=== PATIENT | female | born 2000 | race Caucasian/White ===

== ENCOUNTER 2019-04-05 19:13 | Inpatient (IN) | payer OTHER ==
[~2019-04-05] VITALS: Ht 170.2 cm; Wt 78.4 kg
[2019-04-05] MEDS: NS 1,000 ML IV SCH (01:55)
[2019-04-05] MEDS ORDERED: NS 1,000 ML IV ONE (19:30)
[2019-04-05 19:45] LABS: BASO % 0.2 % (0.0-1.0); EOS % 0.1 % (0.0-3.0); HEMATOCRIT 41.9 % (36.0-47.0); HEMOGLOBIN 14.5 g/dl (12.0-15.5); LYMPH # 1.4 10^3/uL (1.5-6.5); LYMPH % 16.8 % (24.0-44.0); MEAN CORPUSCULAR HEMOGLOBIN 30.7 pg (27.0-33.0); MEAN CORPUSCULAR HGB CONC 34.6 g/dl (32.0-36.5); MEAN CORPUSCULAR VOLUME 88.6 fl (80.0-96.0); MONO # 0.4 10^3/uL (0.0-0.8); MONO % 4.7 % (0.0-5.0); NEUTROPHILS # 6.5 10^3/uL (1.8-7.7); PLATELET COUNT, AUTOMATED 232 10^3/uL (150-450); RED BLOOD COUNT 4.73 10^6/uL (4.00-5.40); WHITE BLOOD COUNT 8.3 10^3/uL (4.0-10.0)
[2019-04-05 20:04] LABS: HCG, SERUM QUALITATIVE NEGATIVE (NEGATIVE)
[2019-04-05 20:06] LABS: ACETAMINOPHEN LEVEL 179.8 UG/ML (10.0-30.0); ALBUMIN 4.2 GM/DL (3.2-5.2); ALT/SGPT 22 U/L (12-78); BILIRUBIN,DIRECT 0.2 MG/DL (0.0-0.2); BILIRUBIN,TOTAL 0.5 MG/DL (0.2-1.0); BLOOD UREA NITROGEN 14 MG/DL (7-18); CALCIUM LEVEL 9.1 MG/DL (8.5-10.1); CARBON DIOXIDE LEVEL 25 MEQ/L (21-32); CHLORIDE LEVEL 107 MEQ/L (98-107); CPK CREATINE PHOSPHOKINASE 73 U/L (26-192); CREATININE FOR GFR 0.87 MG/DL (0.55-1.30); ETHYL ALCOHOL (ETHANOL) 0.004 % (0.000-0.010); GLUCOSE, FASTING 111 MG/DL (70-100); POTASSIUM SERUM 3.7 MEQ/L (3.5-5.1); SALICYLATE LEVEL < 1.7 MG/DL (5.0-30.0); SODIUM LEVEL 140 MEQ/L (136-145); TOTAL PROTEIN 7.1 GM/DL (6.4-8.2)
[2019-04-05] MEDS ORDERED: ACETYLCYSTEINE 10,500 MG in D5W 250 ML IV ONE (21:00)
--- NOTE | 2019-04-05 21:36 | ECGEPIP ---
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
[2019-04-05 21:42] LABS: AMPHETAMINES LEVEL URINE NEGATIVE (NEGATIVE); BARBITURATES URINE NEGATIVE (NEGATIVE); BENZODIAZEPINES URINE NEGATIVE (NEGATIVE); CANNABINOIDS URINE NEGATIVE (NEGATIVE); COCAINE METABOLITE URINE NEGATIVE (NEGATIVE); METHADONE URINE NEGATIVE (NEGATIVE); OPIATES URINE NEGATIVE (NEGATIVE); PHENCYCLIDINE URINE NEGATIVE (NEGATIVE)
[2019-04-05] MEDS ORDERED: IBUPPOW25 PO (21:43)
[2019-04-05] MEDS ORDERED: ACETYLCYSTEINE 3,500 MG in D5W 500 ML IV ONE (22:00)
[2019-04-05] MEDS ORDERED: ONDANSETRON 4MG/2ML VIAL (J2405) IV ONE (22:30)
[2019-04-05] MEDS ORDERED: ONDANSETRON 4MG/2ML VIAL (J2405) IV PRN (23:45)
--- NOTE | 2019-04-05 23:56 | HPEPDOC ---
General Date of Admission 04/05/19 Date of Service: Apr 05, 2019 Chief Complaint The patient is a 18-year-old female admitted with a reason for visit of Overdose. History of Present Illness This is a 18 yo female with no pmhx who presented to the ed for tylenol overdose around 2pm, today. Patient said she has been feeling depressed, but she didn't want to share what was bothering her. She took 30 tabs of 500mg tylenol and used a knife to scrap her skin. Patient said she tried to cut herself in the past. She was never diagnosed with psychiatric illness and said during this time of feeling depressed she never seek medical/psychiatric help. She agrees to see a psychiatrist. She denied any recent illness, fever, chills, chest pain, sob, abd pain, but has nausea and vomited twice. ROS - all 14 point review of system is negative except for whats listed in HPI surgical hx - none Social - denied smoking , drinking or drug use, currently in the and stationed at a base close by. family - mother - bipolar and schizophrenia allergies - penicillin- hives Physical exam Gen: NAD, healthy appearing , HEENT: normocephalic, atraumatic, no discharge from ears or nose, no oropharyngeal erythema or exudate, neck is supple, no lymphadenopathy, trachea midline CVS: RRR, normal S1n S2, no murmur, rubs, or gallops, no edema, no jvd Resp: LCTAB, no rhonchi, wheezes or crackles Abd : soft nontender, normal bowel sounds, no rebound tenderness or guarding MSK: no swelling, full range of motion, strength 5/5 Neuro: AOAx3, no confusion, no focal deficit Psych: normal mood and affect, Assessment and Plan tylenol overdose - suicidal attempt psych consult c/w NAC - 150mg/kg for loading dose to run over 60mins, then 50mg /kg over 4 hours, followed by 100mg/kg over 16hours f/ui test follow repeat cmp for tyelnol peak level in case med was long acting f/u INR//PT 1:1 suicidal watch monitor in PCU full code, from home, no svc Home Medications Scheduled [Ibuprofen] , 1 DOSE PO ASDIRECTED, (Reported) PATIENT STATES SHE TAKES PRESCRIPTION IBUPROFEN. UNABLE TO VERIFY DOSE. WILL CALL [facility] IN THE MORNING. Allergies Coded Allergies: Penicillins (Verified Allergy, Unknown, HIVES, 04/05/19) A-FIB/CHADSVASC A-FIB History Current/History of A-Fib/PAF?: No Current PO Anticoag Therapy: No Age/Risk Factor Scoring CHADSVASC: CHADSVASC Response (Comments) Value Age Risk Factor Age < 65 years old 0 Gender Risk Factor Female 1 Hx of CHF No 0 Hx of HTN No 0 Hx of Stroke/TIA/or VTE No 0 Hx of Diabetes No 0 Hx of Vascular Disease No 0 Total 1 Treatment Treatment ordered: NONE Reason Anticoagulant not given: Not indicated/[id number] Vital Signs Vital Signs Date Time Temp Pulse Resp B/P (MAP) Pulse Ox O2 Delivery O2 Flow Rate FiO2 04/05/19 22:30 73 122/70 (87) 97 04/05/19 22:15 18 Room Air 04/05/19 20:35 97.4 Laboratory Data Labs 24H Laboratory Tests 2 04/05/19 19:25: Immature Granulocyte % (Auto) 0.2, White Blood Count 8.3, Red Blood Count 4.73, Hemoglobin 14.5, Hematocrit 41.9, Mean Corpuscular Volume 88.6, Mean Corpuscular Hemoglobin 30.7, Mean Corpuscular Hemoglobin Concent 34.6, Red Cell Distribution Width 12.2, Platelet Count 232, Neutrophils (%) (Auto) 78.0H, Lymphocytes (%) (Auto) 16.8L, Monocytes (%) (Auto) 4.7, Eosinophils (%) (Auto) 0.1, Basophils (%) (Auto) 0.2, Neutrophils # (Auto) 6.5, Lymphocytes # (Auto) 1.4L, Monocytes # (Auto) 0.4, Eosinophils # (Auto) 0.0, Basophils # (Auto) 0.0, Nucleated Red Blood Cells % (auto) 0.0, Anion Gap 8, Calcium Level 9.1, Aspartate Amino Transf (AST/SGOT) 16, Alanine Aminotransferase (ALT/SGPT) 22, Alkaline Phosphatase 121H, Total Bilirubin 0.5, Direct Bilirubin 0.2, Total Creatine Kinase 73, Total Protein 7.1, Albumin 4.2, Albumin/Globulin Ratio 1.45, Thyroid Stimulating Hormone (TSH) 1.070, Human Chorionic Gonadotropin, Qual NEGATIVE, Salicylates Level < 1.7L, Urine Amphetamines Screen NEGATIVE, Urine Benzodiazepines Screen NEGATIVE, Urine Opiates Screen NEGATIVE, Urine Methadone Screen NEGATIVE, Acetaminophen Level 179.8H, Urine Barbiturates Screen NEGATIVE, Urine Phencyclidine Screen NEGATIVE, Urine Cocaine Metabolite Screen NEGATIVE, Urine Cannabinoids Screen NEGATIVE, Ethyl Alcohol Level 0.004 04/05/19 19:44: Bedside Glucose (Misc Panel) 93 CBC/BMP Laboratory Tests 04/05/19 19:25 Red Blood Count 4.73, Mean Corpuscular Volume 88.6, Mean Corpuscular Hemoglobin 30.7, Mean Corpuscular Hemoglobin Concent 34.6, Red Cell Distribution Width 12.2, Neutrophils (%) (Auto) 78.0 H, Lymphocytes (%) (Auto) 16.8 L, Monocytes (%) (Auto) 4.7, Eosinophils (%) (Auto) 0.1, Basophils (%) (Auto) 0.2, Neutrophils # (Auto) 6.5, Lymphocytes # (Auto) 1.4 L, Monocytes # (Auto) 0.4, Eosinophils # (Auto) 0.0, Basophils # (Auto) 0.0 Plan / VTE VTE Prophylaxis Ordered?: Yes LEXI LING MD Apr 05, 2019 23:56
[2019-04-06 00:07] LABS: ACETAMINOPHEN LEVEL 77.3 UG/ML (10.0-30.0); SALICYLATE LEVEL < 1.7 MG/DL (5.0-30.0)
[2019-04-06 01:10] LABS: ALBUMIN 3.5 GM/DL (3.2-5.2); ALT/SGPT 24 U/L (12-78); BILIRUBIN,TOTAL 0.4 MG/DL (0.2-1.0); BLOOD UREA NITROGEN 11 MG/DL (7-18); CARBON DIOXIDE LEVEL 24 MEQ/L (21-32); CHLORIDE LEVEL 109 MEQ/L (98-107); CREATININE FOR GFR 0.84 MG/DL (0.55-1.30); GLUCOSE, FASTING 156 MG/DL (70-100); POTASSIUM SERUM 3.8 MEQ/L (3.5-5.1); SODIUM LEVEL 144 MEQ/L (136-145); TOTAL PROTEIN 6.2 GM/DL (6.4-8.2)
[2019-04-06 01:12] LABS: INR 1.15; PROTHROMBIN TIME 14.4 SECONDS (11.8-14.0)
[2019-04-06] MEDS ORDERED: ACETYLCYSTEINE 7,000 MG in D5W 1,000 ML IV ONE (02:00)
[2019-04-06] MEDS: HEPARIN SOD (PORCINE) 5000 UNITS/ML VIAL SQ SCH ×3 (06:50→21:38)
[2019-04-06 07:13] LABS: HEMATOCRIT 37.3 % (36.0-47.0); HEMOGLOBIN 12.9 g/dl (12.0-15.5); MEAN CORPUSCULAR HEMOGLOBIN 30.9 pg (27.0-33.0); MEAN CORPUSCULAR HGB CONC 34.6 g/dl (32.0-36.5); MEAN CORPUSCULAR VOLUME 89.4 fl (80.0-96.0); PLATELET COUNT, AUTOMATED 209 10^3/uL (150-450); RED BLOOD COUNT 4.17 10^6/uL (4.00-5.40); WHITE BLOOD COUNT 10.6 10^3/uL (4.0-10.0)
[2019-04-06 07:35] LABS: BLOOD UREA NITROGEN 9 MG/DL (7-18); CARBON DIOXIDE LEVEL 23 MEQ/L (21-32); CHLORIDE LEVEL 111 MEQ/L (98-107); CREATININE FOR GFR 0.68 MG/DL (0.55-1.30); GLUCOSE, FASTING 90 MG/DL (70-100); MAGNESIUM LEVEL 1.8 MG/DL (1.4-2.0); POTASSIUM SERUM 3.5 MEQ/L (3.5-5.1); SODIUM LEVEL 142 MEQ/L (136-145)
[2019-04-06] MEDS: NS 1,000 ML IV SCH ×2 (07:40→16:40)
[2019-04-06 08:50] LABS: INR 1.27; PROTHROMBIN TIME 15.6 SECONDS (11.8-14.0)
[2019-04-06 08:51] LABS: PARTIAL THROMBOPLASTIN TIME 31.8 SECONDS (25.0-38.4)
[2019-04-06 09:10] LABS: ACETAMINOPHEN LEVEL 10.2 UG/ML (10.0-30.0); ALT/SGPT 15 U/L (12-78); BILIRUBIN,TOTAL 0.5 MG/DL (0.2-1.0); BLOOD UREA NITROGEN 7 MG/DL (7-18); CALCIUM LEVEL 7.8 MG/DL (8.5-10.1); CARBON DIOXIDE LEVEL 23 MEQ/L (21-32); CHLORIDE LEVEL 109 MEQ/L (98-107); GLUCOSE, FASTING 121 MG/DL (70-100); POTASSIUM SERUM 3.4 MEQ/L (3.5-5.1); SODIUM LEVEL 140 MEQ/L (136-145); TOTAL PROTEIN 5.6 GM/DL (6.4-8.2)
[2019-04-06] MEDS ORDERED: IBUP1TAB7 PO (09:15)
--- NOTE | 2019-04-06 15:51 | IPNPDOC ---
Date Seen The patient was seen on 04/06/19. Progress Note SUBJECTIVE: No c/o nausea, vomiting, abdominal pain,cramping, diarrhea, fever or chills. no confusion.Asking when she can be released. No other issues per sitter. Pt ate her breakfast without complaints. OBJECTIVE: PHYSICAL EXAMINATION: VITALS: PLS SEE BELOW Gen: NAD, healthy appearing , HEENT: normocephalic, atraumatic, no discharge from ears or nose, no oropharyngeal erythema or exudate, neck is supple, no lymphadenopathy, trachea midline CVS: RRR, normal S1n S2, no murmur, rubs, or gallops, no edema, no jvd Resp: LCTAB, no rhonchi, wheezes or crackles Abd : soft nontender, normal bowel sounds, no rebound tenderness or guarding MSK: no swelling, full range of motion, strength 5/5 Neuro: AOAx3, no confusion, no focal deficit Psych: normal mood and affect, LABORATORY DATA, IMAGING STUDIES: PLS SEE BELOW ASSESSMENT AND PLAN: This is a 18 yo female with no pmhx who presented to the ed for tylenol overdose around 2pm, today. Patient said she has been feeling depressed, but she didn't want to share what was bothering her. She took 30 tabs of 500mg tylenol and used a knife to scrap her skin. Patient said she tried to cut herself in the past. She was never diagnosed with psychiatric illness and said during this time of feeling depressed she never seek medical/psychiatric help. She agrees to see a psychiatrist. She denied any recent illness, fever, chills, chest pain, sob, abd pain, but has nausea and vomited twice. ACUTE MEDICAL ISSUES: ACETAMINOPHEN INTENTIONAL OVERDOSE. psych consult once medically stable c/w NAC - 150mg/kg for loading dose to run over 60mins, then 50mg /kg over 4 hours, followed by 100mg/kg over 16hours negative test 1:1 suicidal watch monitor in PCU monitor inr, cmp, and acetoaminophen . following poison control recommendations SUICIDE ATTEMPT via ACETAMINOPHEN INTENTIONAL OVERDOSE. psych consult once medically stable c/w NAC - 150mg/kg for loading dose to run over 60mins, then 50mg /kg over 4 hours, followed by 100mg/kg over 16hours negative test 1:1 suicidal watch monitor in PCU monitor inr, cmp, and acetoaminophen . following poison control recommendations SEVERE DEPRESSION with suicide attempt via ACETAMINOPHEN INTENTIONAL OVERDOSE. psych consult once medically stable c/w NAC - 150mg/kg for loading dose to run over 60mins, then 50mg /kg over 4 hours, followed by 100mg/kg over 16hours negative test 1:1 suicidal watch monitor in PCU monitor inr, cmp, and acetoaminophen . following poison control recommendations disposition: psych consult once medically cleared. VS, I&O, 24H, Fishbone Vital Signs/I&O Vital Signs Date Time Temp Pulse Resp B/P (MAP) Pulse Ox O2 Delivery O2 Flow Rate FiO2 04/06/19 15:42 98.0 78 18 119/75 (90) 100 Room Air I&O- Last 24 Hours up to 6 AM 04/06/19 06:00 Intake Total 250 ml Balance 250 ml Laboratory Data 24H LABS Laboratory Tests 2 04/05/19 19:25: Immature Granulocyte % (Auto) 0.2, White Blood Count 8.3, Red Blood Count 4.73, Hemoglobin 14.5, Hematocrit 41.9, Mean Corpuscular Volume 88.6, Mean Corpuscular Hemoglobin 30.7, Mean Corpuscular Hemoglobin Concent 34.6, Red Cell Distribution Width 12.2, Platelet Count 232, Neutrophils (%) (Auto) 78.0H, Lymphocytes (%) (Auto) 16.8L, Monocytes (%) (Auto) 4.7, Eosinophils (%) (Auto) 0.1, Basophils (%) (Auto) 0.2, Neutrophils # (Auto) 6.5, Lymphocytes # (Auto) 1.4L, Monocytes # (Auto) 0.4, Eosinophils # (Auto) 0.0, Basophils # (Auto) 0.0, Nucleated Red Blood Cells % (auto) 0.0, Anion Gap 8, Calcium Level 9.1, Aspartate Amino Transf (AST/SGOT) 16, Alanine Aminotransferase (ALT/SGPT) 22, Alkaline Phosphatase 121H, Total Bilirubin 0.5, Direct Bilirubin 0.2, Total Creatine Kinase 73, Total Protein 7.1, Albumin 4.2, Albumin/Globulin Ratio 1.45, Thyroid Stimulating Hormone (TSH) 1.070, Human Chorionic Gonadotropin, Qual NEGATIVE, Salicylates Level < 1.7L, Urine Amphetamines Screen NEGATIVE, Urine Benzodiazepines Screen NEGATIVE, Urine Opiates Screen NEGATIVE, Urine Methadone Screen NEGATIVE, Acetaminophen Level 179.8H, Urine Barbiturates Screen NEGATIVE, Urine Phencyclidine Screen NEGATIVE, Urine Cocaine Metabolite Screen NEGATIVE, Urine Cannabinoids Screen NEGATIVE, Ethyl Alcohol Level 0.004 04/05/19 19:44: Bedside Glucose (Misc Panel) 93 04/05/19 23:22: Anion Gap 11, Calcium Level 8.0L, Aspartate Amino Transf (AST/SGOT) 13, Alanine Aminotransferase (ALT/SGPT) 24, Alkaline Phosphatase 104, Total Bilirubin 0.4, Total Protein 6.2L, Albumin 3.5, Albumin/Globulin Ratio 1.30, Salicylates Level < 1.7L, Acetaminophen Level 77.3H, Blood Urea Nitrogen 11, Creatinine 0.84, Sodium Level 144, Potassium Level 3.8, Chloride Level 109H, Carbon Dioxide Level 24 04/05/19 23:59: Prothrombin Time 14.4H, Prothromb Time International Ratio 1.15 04/06/19 06:53: Nucleated Red Blood Cells % (auto) 0.0, Anion Gap 8, Lactic Acid Level 1.1, Blood Urea Nitrogen 9, Creatinine 0.68, Sodium Level 142, Potassium Level 3.5, Chloride Level 111H, Carbon Dioxide Level 23, Calcium Level 8.0L, Magnesium Level 1.8 04/06/19 08:26: Anion Gap 8, Blood Urea Nitrogen 7, Creatinine 0.70, Sodium Level 140, Potassium Level 3.4L, Chloride Level 109H, Carbon Dioxide Level 23, Calcium Level 7.8L, Prothrombin Time 15.6H, Prothromb Time International Ratio 1.27, Activated Partial Thromboplast Time 31.8, Aspartate Amino Transf (AST/SGOT) 12, Alanine Aminotransferase (ALT/SGPT) 15, Alkaline Phosphatase 83, Total Bilirubin 0.5, Total Protein 5.6L, Albumin 3.0L, Albumin/Globulin Ratio 1.15, Acetaminophen Level 10.2 CBC/BMP Laboratory Tests 04/05/19 19:25 Red Blood Count 4.73, Mean Corpuscular Volume 88.6, Mean Corpuscular Hemoglobin 30.7, Mean Corpuscular Hemoglobin Concent 34.6, Red Cell Distribution Width 12.2, Neutrophils (%) (Auto) 78.0 H, Lymphocytes (%) (Auto) 16.8 L, Monocytes (%) (Auto) 4.7, Eosinophils (%) (Auto) 0.1, Basophils (%) (Auto) 0.2, Neutrophils # (Auto) 6.5, Lymphocytes # (Auto) 1.4 L, Monocytes # (Auto) 0.4, Eosinophils # (Auto) 0.0, Basophils # (Auto) 0.0 04/05/19 23:22 Calcium Level 8.0 L, Aspartate Amino Transf (AST/SGOT) 13, Alanine Aminotransferase (ALT/SGPT) 24, Alkaline Phosphatase 104, Total Bilirubin 0.4, Total Protein 6.2 L, Albumin 3.5 04/06/19 06:53 Red Blood Count 4.17, Mean Corpuscular Volume 89.4, Mean Corpuscular Hemoglobin 30.9, Mean Corpuscular Hemoglobin Concent 34.6, Red Cell Distribution Width 12.2, Calcium Level 8.0 L 04/06/19 08:26 Calcium Level 7.8 L, Aspartate Amino Transf (AST/SGOT) 12, Alanine Am inotransferase (ALT/SGPT) 15, Alkaline Phosphatase 83, Total Bilirubin 0.5, Total Protein 5.6 L, Albumin 3.0 L ORLANDO MCCAULEY MD Apr 06, 2019 15:51
[2019-04-06 16:07] LABS: INR 1.27; PROTHROMBIN TIME 15.6 SECONDS (11.8-14.0)
[2019-04-06 16:28] LABS: ACETAMINOPHEN LEVEL 5.4 UG/ML (10.0-30.0); ALBUMIN 3.2 GM/DL (3.2-5.2); ALT/SGPT 19 U/L (12-78); BILIRUBIN,TOTAL 0.2 MG/DL (0.2-1.0); BLOOD UREA NITROGEN 9 MG/DL (7-18); CALCIUM LEVEL 8.8 MG/DL (8.5-10.1); CARBON DIOXIDE LEVEL 24 MEQ/L (21-32); CHLORIDE LEVEL 112 MEQ/L (98-107); CREATININE FOR GFR 0.77 MG/DL (0.55-1.30); GLUCOSE, FASTING 86 MG/DL (70-100); POTASSIUM SERUM 3.8 MEQ/L (3.5-5.1); SODIUM LEVEL 144 MEQ/L (136-145); TOTAL PROTEIN 5.8 GM/DL (6.4-8.2)
[2019-04-06 17:00] VITALS: BP 152/78
[2019-04-06 20:00] VITALS: BP 126/57
[2019-04-07] VITALS (7 sets, daily range): BP systolic 104–145; BP diastolic 51–88
[2019-04-07] MEDS: NS 1,000 ML IV SCH ×3 (01:05→20:27)
[2019-04-07] MEDS: HEPARIN SOD (PORCINE) 5000 UNITS/ML VIAL SQ SCH ×3 (06:01→21:32)
[2019-04-07 11:22] LABS: HEMATOCRIT 40.8 % (36.0-47.0); HEMOGLOBIN 14.1 g/dl (12.0-15.5); MEAN CORPUSCULAR HEMOGLOBIN 30.5 pg (27.0-33.0); MEAN CORPUSCULAR HGB CONC 34.6 g/dl (32.0-36.5); MEAN CORPUSCULAR VOLUME 88.3 fl (80.0-96.0); PLATELET COUNT, AUTOMATED 215 10^3/uL (150-450); RED BLOOD COUNT 4.62 10^6/uL (4.00-5.40); WHITE BLOOD COUNT 7.2 10^3/uL (4.0-10.0)
[2019-04-07 12:13] LABS: ALBUMIN 3.6 GM/DL (3.2-5.2); ALT/SGPT 23 U/L (12-78); BILIRUBIN,TOTAL 0.4 MG/DL (0.2-1.0); BLOOD UREA NITROGEN 6 MG/DL (7-18); CALCIUM LEVEL 9.2 MG/DL (8.5-10.1); CARBON DIOXIDE LEVEL 30 MEQ/L (21-32); CHLORIDE LEVEL 108 MEQ/L (98-107); GLUCOSE, FASTING 85 MG/DL (70-100); POTASSIUM SERUM 4.2 MEQ/L (3.5-5.1); SODIUM LEVEL 140 MEQ/L (136-145); TOTAL PROTEIN 6.9 GM/DL (6.4-8.2)
--- NOTE | 2019-04-07 16:23 | IPNPDOC ---
Text Note Date of Service The patient was seen on 04/07/19. NOTE SUBJECTIVE: No acute overnight events. Patient states she feels well and has no complaints. No fevers, chills, cough, wheezing, chest pain, abd pain, SOB, cough, n/v/diarrhea. OBJECTIVE: GEN: NAD, appears healthy, stated age HEENT: EOMI, MMM, neck supple Cardio: S1/S2 present, RRR, no m/r/g. Pulses palpable in all extremities. No focal edema. Lungs: CTA b/l, good air entry, no wheezing Abd: soft, non-tender, non-distended, bowel sounds present, no scars, no guarding or tenderness MSK: strength 5/5, no focal weakness, no swelling. Lymph: no lymph nodes appreciated. Neuro: A&Ox3, no focal neuro deficits. Psych: normal mood, depressed affect LABORATORY DATA, IMAGING STUDIES: PLS SEE BELOW ASSESSMENT AND PLAN: This is a 18 yo female with no pmhx who presented to the ed for tylenol overdose. Patient said she has been feeling depressed, but she didn't want to share what was bothering her. She took 30 tabs of 500mg tylenol and used a knife to scrap her skin. Patient said she tried to cut herself in the past. She was never diagnosed with psychiatric illness and said during this time of feeling depressed she never seek medical/psychiatric help. She agrees to see a [facility] chiatrist. ACUTE MEDICAL ISSUES: Intentional Tylenol overdose -s/p NAC - 150mg/kg for loading dose to run over 60mins, then 50mg /kg over 4 hours, followed by 100mg/kg over 16hours. -IVF hydration -LFTs remain normal, will continue to monitor. INR elevated to 1.27, continue to monitor. -monitor CMP, INR. Suicide attempt likely underlying depression -Psychiatry consult for likely inpatient admission -1:1 suicidal watch dvt ppx: with heparin disposition: likely psych admission when cleared. Vital Signs Date Time Temp Pulse Resp B/P (MAP) Pulse Ox O2 Delivery O2 Flow Rate FiO2 04/07/19 12:30 97.9 48 20 123/83 (96) 100 04/07/19 08:30 98.8 75 19 133/62 (85) 100 04/07/19 04:00 97.4 65 18 107/57 (74) 96 04/07/19 00:00 96.8 70 18 104/51 (68) 98 04/06/19 20:00 98.5 77 18 126/57 (80) 96 04/06/19 17:00 97.6 74 17 152/78 (102) 98 Intake & Output 04/07/19 06:00 Intake Total 1240 ml Output Total 400 ml Balance 840 ml Laboratory Tests 04/07/19 11:00: White Blood Count 7.2, Red Blood Count 4.62, Hemoglobin 14.1, Hematocrit 40.8, Mean Corpuscular Volume 88.3, Mean Corpuscular Hemoglobin 30.5, Mean Corpuscular Hemoglobin Concent 34.6, Red Cell Distribution Width 12.4, Platelet Count 215, Nucleated Red Blood Cells % (auto) 0.0, Blood Urea Nitrogen 6L, Creatinine 0.70, Sodium Level 140, Potassium Level 4.2, Chloride Level 108H, Carbon Dioxide Level 30, Calcium Level 9.2, Aspartate Amino Transf (AST/SGOT) 17, Alanine Aminotransferase (ALT/SGPT) 23, Alkaline Phosphatase 110, Total Bilirubin 0.4#, Total Protein 6.9, Albumin 3.6, Anion Gap 2L, Fasting Glucose 85, Albumin/Globu farzana Ratio 1.09 Current Medications Medications (Trade) Dose Ordered Sig/Lalo Route PRN Reason Start Time Stop Time Status Last Admin Dose Admin Heparin Sodium (Porcine) (Heparin) 5,000 units Q8H SQ 04/06/19 06:00 04/07/19 14:00 5,000 UNITS Sodium Chloride 1,000 ml @ 125 mls/hr Q8H IV 04/05/19 23:45 04/07/19 07:45 125 MLS/HR VS,Fishbone, I+O VS, Fishbone, I+O Laboratory Tests 04/07/19 11:00 Red Blood Count 4.62, Mean Corpuscular Volume 88.3, Mean Corpuscular Hemoglobin 30.5, Mean Corpuscular Hemoglobin Concent 34.6, Red Cell Distribution Width 12.4, Calcium Level 9.2, Aspartate Amino Transf (AST/SGOT) 17, Alanine Aminotransferase (ALT/SGPT) 23, Alkaline Phosphatase 110, Total Bilirubin 0.4 #, Total Protein 6.9, Albumin 3.6 Vital Signs Date Time Temp Pulse Resp B/P (MAP) Pulse Ox O2 Delivery O2 Flow Rate FiO2 04/07/19 12:30 97.9 48 20 123/83 (96) 100 04/06/19 15:42 Room Air I&O- Last 24 Hours up to 6 AM 04/07/19 06:00 Intake Total 1240 ml Output Total 400 ml Balance 840 ml RICARDO URIARTE MD Apr 07, 2019 16:23
[2019-04-07] MEDS ORDERED: IBUPROFEN 400 MG TAB PO ONE (17:00)
--- NOTE | 2019-04-07 22:30 | MHCR ---
DATE OF CONSULTATION: 04/07/2019 CHIEF COMPLAINT: She feels stressed. SUBJECTIVE: She is 18 years old. She is single. 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 Says had difficulties off and on with sleep. Has a hard time getting to sleep, particularly when stressed and depressed. Has felt increasingly lonely, as is away from home. Family is in [place]. She is the oldest of seven siblings. Says failed a PT test in the and had been given a few months for preparation for a repeat test, says is training for it but increasingly felt that she will not be able to make it. Meanwhile, felt further depressed. Says those down emotions would come in "waves," last for a day or so, sometimes longer and that began increasing gradually. [place] depressed for a fair amount of time lately, the last few weeks with further difficulties with sleep. [place] more tired. Had a harder time with concentration. Says generally has liked hanging out with her friends, though at times has noticed a diminished desire to do so or engage in activities. Continued doing her work. Says would tend to get upset with comments she would hear either about her or other friends, which were not complimentary. Says on one occasion pointed it out to her seniors, but felt down for several days. Says tends to "joke" and had indicated to a friend lately that she had thoughts that were "not good," says they thought that it alluded to suicide and more lately, the last few weeks, began worrying about the PT test coming up, which is due to take place within the last few days. Says she was not ready for it and also felt that she would not pass. That would also mean that she would be chaptered out. Says did not want to return to [place] and that though her family would be supportive and understanding, she felt that she would be letting them down and a sense of failure. She also felt increasingly despondent over this, texted a friend that she had thoughts of taking her life or alluded to it. By then says had started taking Tylenol. She bought the Tylenol about a week prior to this. Says because of pain in the left shoulder while running. Says had been given a prescription for that. Says took a few Tylenol, felt further down, and took some more. Was washing them with water. Says went to sleep, woke up, continued taking them, and ended up taking about 30 or so, meanwhile at some point threw up while still at home. Says the MPs had been called by her friend. She remembers them coming, and the journey here. Threw up at some point in the hospital as well. She also scratched her left arm, somewhat superficially. Had cut herself. Says does not think that she was thinking of killing herself, but is not sure. She says wanted to "go away," given the difficulties she experienced and emotions she was feeling. Acknowledges that there was a point where she may have thought of killing herself, but says is glad she did not . Says has friends, a few, whom she can confide in, whom have been supportive and local. She was admitted to the medical service for medical stabilization given the overdose of Tylenol and is in the process of being cleared. She has received intravenous fluids, as well as acetyl cysteine. REVIEW OF SYSTEMS: There is no history of hypomania nor lita. No history of psychosis. No history of posttraumatic stress disorder (PTSD). Says feels anxious a fair amount of the time, even when doing well. No history of obsessions or compulsions. PAST PSYCHIATRIC HISTORY: None formally, but says felt depressed in high school, particularly the latter years, about a year or year and a half ago when she felt depressed for a substantial while, impacting her sleep and appetite. She says that there were times when she thought of taking her life but did not come close to it or had any plans at the time. Says did not seek help, but had thought of doing so. FAMILY PSYCHIATRIC HISTORY: Mother has attempted taking her life, has been hospitalized as well. The patient says that the mother has a history of bipolar disorder, apparently. SUBSTANCE ABUSE HISTORY: None significantly. MEDICAL HISTORY: None significantly. ALLERGIES: PENICILLIN. SOCIAL HISTORY: She was born and raised in [place]. Says did not have an easy childhood. Says that there have always been financial concerns, father was the only breadwinner. She says that he has worked hard, mostly nights, and she has hardly seen him during the day except times when she was home. She says that they get along. She gets along with her mother as well, but indicates mother has not worked, even when she could have, per the patient. The patient says that from a relatively early age, when she was 12, often had to look after her younger siblings to help her mother. The mother has generally stayed home. She says that there has always been financial concerns. Says that there is not much involvement by the grandparents, though she has been in touch with them except for one. No extended family as such. She graduated high school, says had thought of further studies but has had financial concerns and says was hoping being in the would help with that. MENTAL STATUS EXAMINATION: She is neat. She is generally cooperative though a bit guarded initially. She is sitting up in bed. No abnormal movements noted. There is no agitation. No psychomotor retardation. She is coherent. Answers questions briefly and logically. When speech is extended, no formal thought disorder. Affect is restricted in range. Denies any suicidal thoughts or intents at present. No homicidal ideas or intents. No evidence of any psychosis. No fluctuation of consciousness. She is alert and oriented to time, place and person. Can spell the word "house" forwards and backwards. Can recall two out of three objects after 10 minutes. Intellect is average. Judgment is questionable. Insight is fair at best. INVESTIGATIONS: Acetaminophen level of 179.8, which peaked at that (10 to 30). Metabolic profile essentially within normal limits except for chloride at 108, that was today. Complete blood count essentially within normal limits today. VITAL SIGNS: Blood pressure 129/75, pulse 70, temperature 97.5. ASSESSMENT: 1. Unspecified depressive disorder. 2. Rule out major depressive disorder. 3. Status post overdose. 4. Work related stress. 5. Fear of failing a test. 6. Limited supports. She has been depressed off and on for the past several weeks, clinically significantly, possibly months with diminished sleep, decreased motivation and energy, a sense of hopelessness, and this is further exacerbated by her expecting to fail her PT test and then being "chaptered out," possibly. Would not want to return to [place] and has had an acute sense of having failed the family if she did that. Has a family history of a mood disorder, bipolar disorder, mother has been diagnosed with that and this is an added risk factor. She may well be minimizing her difficulties and her moods, clinically significant, may well have impacted her motivation and therefore her ability to tackle the PT test and this, as mentioned above, further exacerbated by her sense of failure. She is being cleared medically after the overdose. The concerns above remain. RECOMMENDATIONS: She needs inpatient psychiatric hospitalization for further assessment and stabilization after she has been medically cleared. DCS application has been made. Thank you for the consultation. If you have any questions, please call. The assessment took 50 minutes.
[2019-04-08 04:00] VITALS: BP 136/82
[2019-04-08] MEDS: NS 1,000 ML IV SCH (04:30)
[2019-04-08 05:48] LABS: HEMATOCRIT 37.6 % (36.0-47.0); HEMOGLOBIN 12.8 g/dl (12.0-15.5); MEAN CORPUSCULAR HEMOGLOBIN 30.1 pg (27.0-33.0); MEAN CORPUSCULAR VOLUME 88.5 fl (80.0-96.0); PLATELET COUNT, AUTOMATED 179 10^3/uL (150-450); RED BLOOD COUNT 4.25 10^6/uL (4.00-5.40); WHITE BLOOD COUNT 6.1 10^3/uL (4.0-10.0)
[2019-04-08] MEDS: HEPARIN SOD (PORCINE) 5000 UNITS/ML VIAL SQ SCH ×2 (05:53→14:00)
[2019-04-08 06:00] LABS: PROTHROMBIN TIME 12.9 SECONDS (11.8-14.0)
[2019-04-08 06:06] LABS: ALBUMIN 3.2 GM/DL (3.2-5.2); ALT/SGPT 23 U/L (12-78); BILIRUBIN,TOTAL 0.3 MG/DL (0.2-1.0); BLOOD UREA NITROGEN 8 MG/DL (7-18); CALCIUM LEVEL 8.6 MG/DL (8.5-10.1); CARBON DIOXIDE LEVEL 29 MEQ/L (21-32); CHLORIDE LEVEL 110 MEQ/L (98-107); CREATININE FOR GFR 0.67 MG/DL (0.55-1.30); GLUCOSE, FASTING 87 MG/DL (70-100); POTASSIUM SERUM 3.9 MEQ/L (3.5-5.1); SODIUM LEVEL 142 MEQ/L (136-145)
[2019-04-08 08:00] VITALS: BP 149/95
[2019-04-08] MEDS ORDERED: SLF 3 ML SYR IV PRN (10:45)
[2019-04-08 12:00] VITALS: BP 138/83
[2019-04-08] MEDS ORDERED: SLF 3 ML SYR IV SCH (14:00)
[2019-04-08 16:00] VITALS: BP 137/85
== END 2019-04-08 16:20 | DRG 918 ==
LOC: M ED 19:13 → M ED INP 23:13 → M PCU 04-06 15:50
PROVIDERS: ADMIT Internal Medicine; ATTEND Internal Medicine
DX: T39.1X2A Poisoning by 4-Aminophenol derivatives, intentional self-harm, initial encounter (principal); Z81.8 Family history of other mental and behavioral disorders; Z88.0 Allergy status to penicillin; F32.9 Major depressive disorder, single episode, unspecified; Z56.6 Other physical and mental strain related to work

== ENCOUNTER 2019-04-08 11:54 | Inpatient (IN) | payer OTHER ==
[~2019-04-08] VITALS: Ht 170.2 cm; Wt 79.7 kg
[~2019-04-08 11:54] MED LIST: IBUP1TAB7 PO; IBUPPOW25 PO
[2019-04-08] MEDS ORDERED: MAALOX 30 ML SUSP *UDC PO PRN (16:00)
[2019-04-08] MEDS ORDERED: MOM 30ML SUSPENSION UDC PO PRN (16:00)
[2019-04-08 16:35] VITALS: BP 130/85
[2019-04-08 18:42] VITALS: BP 130/85
[2019-04-08] MEDS: traZODone 50 MG TAB PO PRN (21:30)
[2019-04-09 06:30] VITALS: BP 119/57
--- NOTE | 2019-04-09 10:16 | MHHPEPDOC ---
General Date Of Admission: Apr 08, 2019 Legal Status: 9.37 Chief Complaint "I was feeling depressed so I took a bunch of tylenol." History of Present Illness HISTORY OF THE PRESENT ILLNESS: Patient is a 18 -year-old , AD, female, who was transferred to [facility] from medical floor after seen by Dr. Hahn on consult and medically stable s/p OD on Tylenol. Per Dr. Hahn's consult note: "She is 18 years old. She is single. 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 Says had difficulties off and on with sleep. Has a hard time getting to sleep, particularly when stressed and depressed. Has felt increasingly lonely, as is away from home. Family is in [place]. She is the oldest of seven siblings. Says failed a PT test in the and had been given a few months for preparation for a repeat test, says is training for it but increasingly felt that she will not be able to make it. Meanwhile, felt further depressed. Says those down emotions would come in "waves," last for a day or so, sometimes longer and that began increasing gradually. [place] depressed for a fair amount of time lately, the last few weeks with further difficulties with sleep. [place] more tired. Had a harder time with concentration. Says generally has liked hanging out with her friends, though at times has noticed a diminished desire to do so or engage in activities. Continued doing her work. Says would tend to get upset with comments she would hear either about her or other friends, which were not complimentary. Says on one occasion pointed it out to her seniors, but felt down for several days. Says tends to "joke" and had indicated to a friend lately that she had thoughts that were "not good," says they thought that it alluded to suicide and more lately, the last few weeks, began worrying about the PT test coming up, which is due to take place within the last few days. Says she was not ready for it and also felt that she would not pass. That would also mean that she would be chaptered out. Says did not want to return to [place] and that though her family would be supportive and understanding, she felt that she would be letting them down and a sense of failure. She also felt increasingly despondent over this, texted a friend that she had thoughts of taking her life or alluded to it. By then says had started taking Tylenol. She bought the Tylenol about a week prior to this. Says because of pain in the left shoulder while running. Says had been given a prescription for that. Says took a few Tylenol, felt further down, and took some more. Was washing them with water. Says went to sleep, woke up, continued taking them, and ended up taking about 30 or so, meanwhile at some point threw up while still at home. Says the [employer] had been called by her friend. She remembers them coming, and the journey here. Threw up at some point in the hospital as well. She also scratched her left arm, somewhat superficially. Had cut herself. Says does not think that she was thinking of killing herself, but is not sure. She says wanted to "go away," given the difficulties she experienced and emotions she was feeling. Acknowledges that there was a point where she may have thought of killing herself, but says is glad she did not . Says has friends, a few, whom she can confide in, whom have been supportive and local. She was admitted to the medical service for medical stabilization given the overdose of Tylenol and is in the process of being cleared. She has received intravenous fluids, as well as acetyl cysteine." Psychiatric Review of Systems Depression (2 or more weeks): depressed mood, difficulty concentrating, suicidal thoughts [place] (4 or more days of): denies Psychosis: denies PTSD: denies Anxiety: situational anxiety, stressor related anxiety Past Psychiatric History Previous Psychiatric Diagnosis: denies but per Dr Hahn endorsed depression in high school Previous Psychiatric Admissions: denies Suicide Attempts: denies prior to recent Tylenol OD Psychiatric Follow-up: denies Psychiatric medications: denies Past Medical History Medical Problems denies Head Injury: No Seizures: No Hospitalizations: No Surgeries: No Family Medical/Psychiatric HX Medical Problems noncontributory Psychiatric Disorders: Yes (mother - bipolar d/o) Addiction: No Suicide Attemps/Completions: Yes (mother - SA, is still living) Addiction History denies Social History Childhood: Born and raised in [place] in a two parent home in which father was the only one that worked mostly at night causing finances to be limited. Continues to have a good relationship with her parents and is close with her mother. Mother never worked even what it was possible for her to work. Pt looked after her younger siblings, 2 younger brothers, starting around age 12 y/o to help her mother. No relation with extended family. Abuse/Trauma:denies Current Living Situation: [employer] Education: High school grad Employment: [employer], 6mos, works in supply Social Support: family Legal: denies Marital: single, never , no kids Mental Status Examination General Appearance: well groomed, appears stated age, hospital scubs/clothing Build: average Demeanor: average Eye Contact: average Activity: anxious Behavior: cooperative Speech: clear, spontaneous, reg/rate,rhythm,volume Mood: euthymic, anxious Mood "stressed" Affect: full, appropriate, congruent, anxious Thought Process: logical/linear, depressed, intact, other (fear of failure) Thought Content (Delusions): none reported, denies SI, HI, AVH Thought Content (Other): none reported, appropriate Thought Content (Aggressive): none reported Perception (Hallucinations): none reported Perception (Other): none reported Cognition (Impairment of): none reported Cognition(Intelligence Est.): average Oriented: Awake, Alert, Oriented times three Insight: fair Judgment: Fair Psychosis: Denies Diagnoses Adjustment d/o with anxiety and depression A-FIB/CHADSVASC A-FIB History Current/History of A-Fib/PAF?: No Current PO Anticoag Therapy: No Treatment Treatment ordered: NONE Reason Anticoagulant not given: Not indicated/[id number] Assessment Pt seen and states she's here b/c she took an OD of Tylenol after failing her PT test a few months ago which caused her to feel "stressed out" and had to retake PT test on Saturday but took OD instead out feeling "fear and shame" about possibly not passing again. States today she feels better today and for calm, less stressed, due to she believes taking a break from work and thinking about how she can change things for the better to make herself feel better regarding her time to take her PT test and pass it. States that she does not think she needs to start an antidepressant at this time and would per to try individual and group therapy (has never been in psych treatment before so good place to start with new pt) to work on coping mechanisms for anxiety and build confidence in herself. Denies SI/HI, hallucinations/delusions. Feels safe here. Initial Treatment Plan 1. Patient was admitted on a 9.37 status. 2. Complete history was obtained. 3. With patients permission, family will be contacted and database will be expanded. 4. Patients medication regimen will be reviewed and changed accordingly. 5. Patient will be provided with protected environment. 6. Patient will be treated with individual, group, and milieu therapies. 7. Patient will receive supportive psych-education. 8. Discharge planning will commence immediately. 9. Outpatient follow-up treatment will be strongly recommended. 10. The initial treatment plan will focus initially on: * Depression. * Risk for suicide. * Substance abuse. 11. monitory for safety. ESTIMATED LENGTH OF STAY: 5-7 DAYS. TIME SPENT COUNSELING AND COORDINATING INITIAL CARE: 60 minutes. Vital Signs Vital Signs Date Time Temp Pulse Resp B/P (MAP) Pulse Ox O2 Delivery O2 Flow Rate FiO2 04/09/19 06:30 97.6 67 12 119/57 (77) 04/08/19 18:42 100 Medications No Active Prescriptions or Reported Meds Allergies Coded Allergies: Penicillins (Verified Allergy, Unknown, HIVES, 04/05/19) NUHA WALTER DO Apr 09, 2019 9:44 am
--- NOTE | 2019-04-09 13:06 | HPEPDOC ---
[facility] Medical History & Physical Date of Admission Apr 09, 2019 Date of Service: Apr 09, 2019 History and Physical CHIEF COMPLAINT: SUICIDE ATTEMPT BY INTENTIONAL ACETAMINOPHEN OVERDOSE HISTORY OF PRESENT This is a 18 yo female was admitted for suicide attempt by intentional acetaminophen overdose, s/p iv acetadote, medically cleared and admitted to [facility] depressed mood, difficulty concentrating, suicidal thoughts, situational anxiety, stressor related anxiety . She denies any nausea, vomiting,abdominal p ain. Liver function tests and coagulation studies are stable. Hospitalist was called for medical history for [facility] admission. She denies loss of appetite, weight changes, chills, fever, sore throat, rhinorrhea, ear discharge/pain/tinnitus, nasal congestion, dysphagia, odynophagia, dysuria, urgency, frequency, flank pain, sob, chest pain, sob, palpitations, lightheadedness, near syncope, upper or lower extremity weakness, paresthesias,gait abnormality.ING ILLNESS: PAST MEDICAL HISTORY: SUICIDE ATTEMPT ACETAMINOPHEN OVERDOSE, INTENTIONAL DEPRESSION PAST SURGICAL HISTORY: NONE HOME MEDICATIONS: NONE ALLERGY: PCN HOSPITAL MEDICATIONS: PLS SEE BELOW SOCIAL HISTORY: denied smoking , drinking or drug use, currently in the and stationed at a base close by. FAMILY HISTORY mother - bipolar and schizophrenia REVIEW OF SYSTEMS: 12POINT SYSTEMS REVIEW NEGATIVE ASIDE FROM (+) FINDINGS ON HPI. PHYSICAL EXAMINATION: VITLAS: PLS SEE BELOW Gen: NAD, healthy appearing , HEENT: normocephalic, atraumatic, no discharge from ears or nose, no oropharyngeal erythema or exudate, neck is supple, no lymphadenopathy, trachea midline CVS: RRR, normal S1n S2, no murmur, rubs, or gallops, no edema, no jvd Resp: CTAB, no rhonchi, wheezes or crackles Abd : soft nontender, normal bowel sounds, no rebound tenderness or guarding MSK: no swelling, full range of motion, strength 5/5 Neuro: AOAx3, no confusion, no focal deficit LABORATORY DATA: reviewed ASSESSMENT AND PLAN: This is a 18 yo female was admitted for suicide attempt by intentional acetaminophen overdose, s/p iv acetadote, medically cleared and admitted to [facility]. She denies any nausea, vomiting,abdominal pain. Liver function tests and coagulation studies are stable. Hospitalist was called for medical history for [facility] admission. She denies loss of appetite, weight changes, chills, fever, sore throat, rhinorrhea, ear discharge/pain/tinnitus, nasal congestion, dysphagia, odynophagia, dysuria, urgency, frequency, flank pain, sob, chest pain, sob, palpitations, lightheadedness, near syncope, upper or lower extremity weakness, paresthesias,gait abnormality. suicide attempt - by intentional acetaminophen overdose, - s/p iv acetadote, -medically cleared - admitted to [facility] depressed mood, difficulty concentrating, suicidal thoughts, situational anxiety, stressor related anxiety intentional acetaminophen overdose, - s/p iv acetadote, -She denies any nausea, vomiting,abdominal pain. Liver function tests and coagulation studies are stable. -medically cleared and admitted to [facility] depressed mood, difficulty concentrating, suicidal thoughts, situational anxiety, stressor related anxiety Depression -managed in [facility] by primary team -psychiatrist adjusting meds Vital Signs Vital Signs Date Time Temp Pulse Resp B/P (MAP) Pulse Ox O2 Delivery O2 Flow Rate FiO2 04/09/19 06:30 97.6 67 12 119/57 (77) 04/08/19 18:42 100 Home Medications No Active Prescriptions or Reported Meds Allergies Coded Allergies: Penicillins (Verified Allergy, Unknown, HIVES, 04/05/19) A-FIB/CHADSVASC A-FIB History Current/History of A-Fib/PAF?: No Current PO Anticoag Therapy: No ORLANDO MCCAULEY MD Apr 09, 2019 12:59
[2019-04-09 18:00] VITALS: BP 143/73
[2019-04-09] MEDS: traZODone 50 MG TAB PO PRN (20:57)
[2019-04-10 06:37] VITALS: BP 135/81
[2019-04-10] MEDS: hydrOXYzine 25 MG TAB PO PRN ×2 (08:53→20:32)
--- NOTE | 2019-04-10 08:53 | MHIPNPDOC ---
[facility] Progress Note Progress Note DATE OF SERVICE: 04/10/19 HISTORY: Patient is a 18 -year-old , AD, female, who was transferred to [facility] from medical floor after seen by Dr. Hahn on consult and medically stable s/p OD on Tylenol. Per Dr. Hahn's consult note: "She is 18 years old. She is single. 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 Says had difficulties off and on with sleep. Has a hard time getting to sleep, particularly when stressed and depressed. Has felt increasingly lonely, as is away from home. Family is in [place]. She is the oldest of seven siblings. Says failed a PT test in the and had been given a few months for preparation for a repeat test, says is training for it but increasingly felt that she will not be able to make it. Meanwhile, felt further depressed. Says those down emotions would come in "waves," last for a day or so, sometimes longer and that began increasing gradually. [place] depressed for a fair amount of time lately, the last few weeks with further difficulties with sleep. [place] more tired. Had a harder time with concentration. Says generally has liked hanging out with her friends, though at times has noticed a diminished desire to do so or engage in activities. Continued doing her work. Says would tend to get upset with comments she would hear either about her or other friends, which were not complimentary. Says on one occasion pointed it out to her seniors, but felt down for several days. Says tends to "joke" and had indicated to a friend lately that she had thoughts that were "not good," says they thought that it alluded to suicide and more lately, the last few weeks, began worrying about the PT test coming up, which is due to take place within the last few days. Says she was not ready for it and also felt that she would not pass. That would also mean that she would be chaptered out. Says did not want to return to [place] and that though her family would be supportive and understanding, she felt that she would be letting them down and a sense of failure. She also felt increasingly despondent over this, texted a friend that she had thoughts of taking her life or alluded to it. By then says had started taking Tylenol. She bought the Tylenol about a week prior to this. Says because of pain in the left shoulder while running. Says had been given a prescription for that. Says took a few Tylenol, felt further down, and took some more. Was washing them with water. Says went to sleep, woke up, continued taking them, and ended up taking about 30 or so, meanwhile at some point threw up while still at home. Says the [facility] had been called by her friend. She remembers them coming, and the journey here. Threw up at some point in the hospital as well. She also scratched her left arm, somewhat superficially. Had cut herself. Says does not think that she was thinking of killing herself, but is not sure. She says wanted to "go away," given the difficulties she experienced and emotions she was feeling. Acknowledges that there was a point where she may have thought of killing herself, but says is glad she did not . Says has friends, a few, whom she can confide in, whom have been supportive and local. She was admitted to the medical service for medical stabilization given the overdose of Tylenol and is in the process of being cleared. She has received intravenous fluids, as well as acetyl cysteine." Pt seen and states she's here b/c she took an OD of Tylenol after failing her PT test a few months ago which caused her to feel "stressed out" and had to retake PT test on Saturday but took OD instead out feeling "fear and shame" about possibly not passing again. States today she feels better today and for calm, less stressed, due to she believes taking a break from work and thinking about how she can change things for the better to make herself feel better regarding her time to take her PT test and pass it. States that she does not think she needs to start an antidepressant at this time and would per to try individual and group therapy (has never been in psych treatment before so good place to start with new pt) to work on coping mechanisms for anxiety and build confidence in herself. Denies SI/HI, hallucinations/delusions. Feels safe here. VITAL SIGNS: See below. NEW TEST RESULTS: See below. CURRENT MEDICATIONS: See below. MENTAL STATUS EXAMINATION: General Appearance: well groomed, appears stated age, hospital scubs/clothing Build: average Demeanor: average Eye Contact: average Activity: anxious Behavior: cooperative Speech: clear, spontaneous, reg/rate,rhythm,volume Mood: euthymic, anxious Mood "anxious some" Affect: full, appropriate, congruent, anxious Thought Process: logical/linear, less depressed, intact, other (fear of failure) Thought Content (Delusions): none reported, denies SI, HI, AVH Thought Content (Other): none reported, appropriate Thought Content (Aggressive): none reported Perception (Hallucinations): none reported Perception (Other): none reported Cognition (Impairment of): none reported Cognition(Intelligence Est.): average Oriented: Awake, Alert, Oriented times three Insight: fair Judgment: Fair Psychosis: Denies DIAGNOSES: Adjustment d/o with anxiety and depression ASSESSMENT:Pt seen and states she's feels alright. Endorses occasional anxiety mostly due to being here instead of outside "with the fresh air" (enjoys the outside and goes hiking often). States this is a new situation for her. Looking forward to seeing the Varsha today for support. States she's being social on the milieu which is beneficial. States she slept well last night. Feels she is tolerating her vistaril and it's beneficial. She is attending groups and finding them helpful. She denies SI/HI, hallucinations, delusions. Pt feels safe here. MANAGEMENT PLAN: continue plan vistaril 25mg q6hr prn anxiety TIME SPENT: 30 minutes. Vital Signs Vital Signs Date Time Temp Pulse Resp B/P (MAP) Pulse Ox O2 Delivery O2 Flow Rate FiO2 04/10/19 06:37 97.6 64 12 135/81 (99) 04/08/19 18:42 100 Current Medications Current Medications Medications (Trade) Dose Ordered Sig/Lalo Route PRN Reason Start Time Stop Time Status Last Admin Dose Admin Acetaminophen (Tylenol Tab) 650 mg Q6HP PRN PO HEADACHE or DISCOMFORT 04/08/19 16:00 Al Hydrox/Mg Hydrox/Simethicone (Mylanta) 30 ml Q4HP PRN PO HEARTBURN/INDIGESTION 04/08/19 16:00 Home Med (Med Rec Complete!) ASDIRECTED XX 04/08/19 16:45 04/08/19 16:45 DC Hydroxyzine HCl (Atarax) 25 mg Q6HP PRN PO ANXIETY 04/09/19 10:30 Magnesium Hydroxide (Milk Of Magnesia) 30 ml DAILYPRN PRN PO CONSTIPATION 04/08/19 16:00 Trazodone HCl (Desyrel) 50 mg QHSP PRN PO INSOMNIA 04/08/19 16:00 04/09/19 20:57 Allergies Coded Allergies: Penicillins (Verified Allergy, Unknown, HIVES, 04/05/19) NUHA WALTER DO Apr 10, 2019 8:53 am
[2019-04-10 18:00] VITALS: BP 114/73
[2019-04-10] MEDS: traZODone 50 MG TAB PO PRN (21:33)
[2019-04-11 06:53] VITALS: BP 104/56
--- NOTE | 2019-04-11 09:16 | MHIPNPDOC ---
[facility] Progress Note Progress Note DATE OF SERVICE: 04/11/19 HISTORY: Patient is a 18 -year-old , AD, female, who was transferred to [facility] from medical floor after seen by Dr. Hahn on consult and medically stable s/p OD on Tylenol. Per Dr. Hahn's consult note: "She is 18 years old. She is single. 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 Says had difficulties off and on with sleep. Has a hard time getting to sleep, particularly when stressed and depressed. Has felt increasingly lonely, as is away from home. Family is in [place]. She is the oldest of seven siblings. Says failed a PT test in the and had been given a few months for preparation for a repeat test, says is training for it but increasingly felt that she will not be able to make it. Meanwhile, felt further depressed. Says those down emotions would come in "waves," last for a day or so, sometimes longer and that began increasing gradually. [place] depressed for a fair amount of time lately, the last few weeks with further difficulties with sleep. [place] more tired. Had a harder time with concentration. Says generally has liked hanging out with her friends, though at times has noticed a diminished desire to do so or engage in activities. Continued doing her work. Says would tend to get upset with comments she would hear either about her or other friends, which were not complimentary. Says on one occasion pointed it out to her seniors, but felt down for several days. Says tends to "joke" and had indicated to a friend lately that she had thoughts that were "not good," says they thought that it alluded to suicide and more lately, the last few weeks, began worrying about the PT test coming up, which is due to take place within the last few days. Says she was not ready for it and also felt that she would not pass. That would also mean that she would be chaptered out. Says did not want to return to [place] and that though her family would be supportive and understanding, she felt that she would be letting them down and a sense of failure. She also felt increasingly despondent over this, texted a friend that she had thoughts of taking her life or alluded to it. By then says had started taking Tylenol. She bought the Tylenol about a week prior to this. Says because of pain in the left shoulder while running. Says had been given a prescription for that. Says took a few Tylenol, felt further down, and took some more. Was washing them with water. Says went to sleep, woke up, continued taking them, and ended up taking about 30 or so, meanwhile at some point threw up while still at home. Says the [employer] had been called by her friend. She remembers them coming, and the journey here. Threw up at some point in the hospital as well. She also scratched her left arm, somewhat superficially. Had cut herself. Says does not think that she was thinking of killing herself, but is not sure. She says wanted to "go away," given the difficulties she experienced and emotions she was feeling. Acknowledges that there was a point where she may have thought of killing herself, but says is glad she did not . Says has friends, a few, whom she can confide in, whom have been supportive and local. She was admitted to the medical service for medical stabilization given the overdose of Tylenol and is in the process of being cleared. She has received intravenous fluids, as well as acetyl cysteine." Pt seen and states she's here b/c she took an OD of Tylenol after failing her PT test a few months ago which caused her to feel "stressed out" and had to retake PT test on Saturday but took OD instead out feeling "fear and shame" about possibly not passing again. States today she feels better today and for calm, less stressed, due to she believes taking a break from work and thinking about how she can change things for the better to make herself feel better regarding her time to take her PT test and pass it. States that she does not think she needs to start an antidepressant at this time and would per to try individual and group therapy (has never been in psych treatment before so good place to start with new pt) to work on coping mechanisms for anxiety and build confidence in herself. Denies SI/HI, hallucinations/delusions. Feels safe here. VITAL SIGNS: See below. NEW TEST RESULTS: See below. CURRENT MEDICATIONS: See below. MENTAL STATUS EXAMINATION: General Appearance: well groomed, appears stated age, hospital scubs/clothing Build: average Demeanor: average Eye Contact: average Activity: less anxious Behavior: cooperative Speech: clear, spontaneous, reg/rate,rhythm,volume Mood: euthymic, less anxious Mood "better" Affect: full, appropriate, congruent, less anxious Thought Process: logical/linear, less depressed, intact, other (fear of f ailure) Thought Content (Delusions): none reported, denies SI, HI, AVH Thought Content (Other): none reported, appropriate Thought Content (Aggressive): none reported Perception (Hallucinations): none reported Perception (Other): none reported Cognition (Impairment of): none reported Cognition(Intelligence Est.): average Oriented: Awake, Alert, Oriented times three Insight: fair Judgment: Fair Psychosis: Denies DIAGNOSES: Adjustment d/o with anxiety and depression ASSESSMENT:Pt seen and states she's feels "better" as vistaril is aiding her anxiety and she's tolerating it well. Saw [place] yesterday and states it went well. States she's being social on the milieu which is beneficial and aiding her with anxiety due to being here. States she slept well last night. She is attending groups and finding them helpful. She denies SI/HI, hallucinations, delusions. Pt feels safe here. MANAGEMENT PLAN: continue plan vistaril 25mg q6hr prn anxiety TIME SPENT: 30 minutes. Vital Signs Vital Signs Date Time Temp Pulse Resp B/P (MAP) Pulse Ox O2 Delivery O2 Flow Rate FiO2 04/11/19 06:53 97.8 72 14 104/56 (72) 04/08/19 18:42 100 Current Medications Current Medications Medications (Trade) Dose Ordered Sig/Lalo Route PRN Reason Start Time Stop Time Status Last Admin Dose Admin Acetaminophen (Tylenol Tab) 650 mg Q6HP PRN PO HEADACHE or DISCOMFORT 04/08/19 16:00 Al Hydrox/Mg Hydrox/Simethicone (Mylanta) 30 ml Q4HP PRN PO HEARTBURN/INDIGESTION 04/08/19 16:00 Home Med (Med Rec Complete!) ASDIRECTED XX 04/08/19 16:45 04/08/19 16:45 DC Hydroxyzine HCl (Atarax) 25 mg Q6HP PRN PO ANXIETY 04/09/19 10:30 04/10/19 20:32 Magnesium Hydroxide (Milk Of Magnesia) 30 ml DAILYPRN PRN PO CONSTIPATION 04/08/19 16:00 Trazodone HCl (Desyrel) 50 mg QHSP PRN PO INSOMNIA 04/08/19 16:00 04/10/19 21:33 Allergies Coded Allergies: Penicillins (Verified Allergy, Unknown, HIVES, 04/05/19) NUHA WALTER DO Apr 11, 2019 9:16 am
[2019-04-11] MEDS: hydrOXYzine 25 MG TAB PO PRN ×2 (09:19→17:45)
[2019-04-11 18:21] VITALS: BP 115/70
[2019-04-11] MEDS: traZODone 50 MG TAB PO PRN (22:18)
[2019-04-12 06:55] VITALS: BP 106/56
[2019-04-12] MEDS: hydrOXYzine 25 MG TAB PO PRN ×2 (08:27→15:48)
[2019-04-12] MEDS: ACETAMINOPHEN TAB 650MG DOSE (2X325MG) PO PRN ×2 (08:28→17:51)
[2019-04-12 18:25] VITALS: BP 140/73
[2019-04-13 06:53] VITALS: BP 120/53
[2019-04-13] MEDS: hydrOXYzine 25 MG TAB PO PRN (08:14)
--- NOTE | 2019-04-13 09:03 | MHDSPDOC ---
[facility] Discharge Summary Discharge Summary DATE OF ADMISSION: Apr 08, 2019 at 2:22 pm DATE OF DISCHARGE: Apr 13, 2019 DISCHARGE DIAGNOSES: Adjustment d/o with anxiety and depression REASON FOR ADMISSION: Patient is a 18 -year-old , AD, female, who was transferred to [facility] from medical floor after seen by Dr. Hahn on consult and medically stable s/p OD on Tylenol. Per Dr. Hahn's consult note: "She is 18 years old. She is single. 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 Says had difficulties off and on with sleep. Has a hard time getting to sleep, particularly when stressed and depressed. Has felt increasingly lonely, as is away from home. Family is in [place]. She is the oldest of seven siblings. Says failed a PT test in the and had been given a few months for preparation for a repeat test, says is training for it but increasingly felt that she will not be able to make it. Meanwhile, felt further depressed. Says those down emotions would come in "waves," last for a day or so, sometimes longer and that began increasing gradually. [place] depressed for a fair amount of time lately, the last few weeks with further difficulties with sleep. [place] more tired. Had a harder time with concentration. Says generally has liked hanging out with her friends, though at times has noticed a diminished desire to do so or engage in activities. Continued doing her work. Says would tend to get upset with comments she would hear either about her or other friends, which were not complimentary. Says on one occasion pointed it out to her seniors, but felt down for several days. Says tends to "joke" and had indicated to a friend lately that she had thoughts that were "not good," says they thought that it alluded to suicide and more lately, the last few weeks, began worrying about the PT test coming up, which is due to take place within the last few days. Says she was not ready for it and also felt that she would not pass. That would also mean that she would be chaptered out. Says did not want to return to [place] and that though her family would be supportive and understanding, she felt that she would be letting them down and a sense of failure. She also felt increasingly despondent over this, texted a friend that she had thoughts of taking her life or alluded to it. By then says had started taking Tylenol. She bought the Tylenol about a week prior to this. Says because of pain in the left shoulder while running. Says had been given a prescription for that. Says took a few Tylenol, felt further down, and took some more. Was washing them with water. Says went to sleep, woke up, continued taking them, and ended up taking about 30 or so, meanwhile at some point threw up while still at home. Says the [employer] had been called by her friend. She remembers them coming, and the journey here. Threw up at some point in the hospital as well. She also scratched her left arm, somewhat superficially. Had cut herself. Says does not think that she was thinking of killing herself, but is not sure. She says wanted to "go away," given the difficulties she experienced and emotions she was feeling. Acknowledges that there was a point where she may have thought of killing herself, but says is glad she did not . Says has friends, a few, whom she can confide in, whom have been supportive and local. She was admitted to the medical service for medical stabilization given the overdose of Tylenol and is in the process of being cleared. She has received intravenous fluids, as well as acetyl cysteine." Pt seen and states she's here b/c she took an OD of Tylenol after failing her PT test a few months ago which caused her to feel "stressed out" and had to retake PT test on Saturday but took OD instead out feeling "fear and shame" about possibly not passing again. States today she feels better today and for calm, less stressed, due to she believes taking a break from work and thinking about how she can change things for the better to make herself feel better regarding her time to take her PT test and pass it. States that she does not think she needs to start an antidepressant at this time and would per to try individual and group therapy (has never been in psych treatment before so good place to start with new pt) to work on coping mechanisms for anxiety and build confidence in herself. Denies SI/HI, hallucinations/delusions. Feels safe here. CONSULTANTS INVOLVED:none TREATMENT AND PROGRESS ON THE UNIT : Pt was admitted to [facility], seen for psychiatric assessment and and not started on a alf psychotropic medication as she declined to start one in prevence of trying outpatient therapy to treat her mood and anxiety. She was provided vistaril 25mg q6hr prn anxiety and trazodone 50mg qhs prn insomnia. Pt found her medications beneficial and tolerated them well. She attended groups daily during her stay. Her symptoms improved with treatment. On day of discharge she denied depression, anxiety, insomnia, SI/HI, hallucinations, delusions. She was discharged home after [place] meeting with follow-up at [facility]. She felt safe for discharge. DISCHARGE ASSESSMENT: Pt seen and states that her mood is good and she's finding her vistaril beneficial to her anxiety. States she's looking forward to going home today. States she's being social on the milieu which is beneficial. States she slept well last night. Feels she is tolerating her medications and it's beneficial. She is attending groups and finding them helpful. She denies depression, anxiety, insomnia, SI/HI, hallucinations, delusions. Pt feels safe to be discharged home today. MENTAL STATUS EXAMINATION ON DISCHARGE: General Appearance: well groomed, appears stated age, own clothing Build: average Demeanor: average Eye Contact: average Activity: average Behavior: cooperative Speech: clear, spontaneous, reg/rate,rhythm,volume Mood: euthymic, full range Mood "good" Affect: full, appropriate, congruent Thought Process: logical/linear, intact Thought Content (Delusions): none reported, denies SI, HI, AVH Thought Content (Other): none reported, appropriate Thought Content (Aggressive): none reported Perception (Hallucinations): none reported Perception (Other): none reported Cognition (Impairment of): none reported Cognition(Intelligence Est.): average Oriented: Awake, Alert, Oriented times three Insight: good Judgment: good Psychosis: Denies MEDICATIONS ON DISCHARGE: vistaril 25mg q6hr prn anxiety PLAN/FOLLOWUP ARRANGEMENTS: D/c home with [facility] with follow-up [facility]. The amount of time spent in the coordination of care for this patient was approximately 30 minutes. Vital Signs/I&Os Vital Signs Date Time Temp Pulse Resp B/P (MAP) Pulse Ox O2 Delivery O2 Flow Rate FiO2 04/13/19 06:53 98.0 75 12 120/53 (75) 04/08/19 18:42 100 Medications Scheduled PRN Hydroxyzine HCl (Hydroxyzine HCl) 25 Mg Tablet, 25 MG PO Q6HP PRN for ANXIETY, #30 Trazodone HCl (Trazodone HCl) 50 Mg Tablet, 50 MG PO QHSP PRN for INSOMNIA, #10 Allergies Coded Allergies: Penicillins (Verified Allergy, Unknown, HIVES, 04/05/19) NUHA WALTER DO Apr 13, 2019 9:03 am
[2019-04-13] MEDS ORDERED: HYDR-3363 PO (09:05)
[2019-04-13] MEDS ORDERED: TRAZ-252 PO (09:05)
== END 2019-04-13 11:40 | disposition home or self-care (01) | DRG 882 ==
LOC: M PSY 14:22
PROVIDERS: ADMIT Psychiatry & Neurology Psychiatry; ATTEND Psychiatry & Neurology Psychiatry
DX: F43.23 Adjustment disorder with mixed anxiety and depressed mood (principal); Z81.8 Family history of other mental and behavioral disorders; Z91.5 Personal history of self-harm; Z88.0 Allergy status to penicillin